=== PATIENT | female | born 1960 | race Caucasian/White ===

== ENCOUNTER → 2018-03-26 21:02 | Outpatient (REF) | payer MEDICARE, SELFPAY ==
[2018-03-26 21:57] LABS: HCT 43.2 % (36.0-46.0); HGB 14.3 g/dL (12.0-15.5); Mean Corp. HGB Concentration 33.1 g/dL (32.0-36.0); Mean Corpuscular Hemoglobin 31.8 pg (27.0-33.0); Mean Corpuscular Volume 96.2 fL (80-95); Platelet Count 210 x1000/uL (130-400); RBC 4.49 m/cumm (4.00-5.20); RBC Distribution Width 12.4 % (11.7-14.6); White Blood Cell Count 5.71 k/cumm (4.4-10.8)
[2018-03-26 22:18] LABS: ALT 103 U/L (12-78); AST 32 U/L (15-37); Albumin 4.1 g/dL (3.4-5.0); Alkaline Phosphatase 129 U/L (46-116); Anion Gap 6.9 mmol/L (3-11); BUN 22 mg/dL (7-18); Bilirubin, Total 0.5 mg/dL (0.2-1.0); CO2 29.1 mmol/L (21.0-32.0); CREATININE 0.98 mg/dL (0.55-1.02); Calcium 9.5 mg/dL (8.5-10.1); Chloride 102 mmol/L (98-107); Estimated GFR 58.29 (mL/min/1.73m2); Glucose 101 mg/dL (70-100); Lipase 126 U/L (73-393); Potassium 4.2 mmol/L (3.5-5.1); Sodium 138 mmol/L (136-145); Total Protein 7.6 g/dL (6.4-8.2)
== END ==
LOC: NCHCN 21:02
PROVIDERS: PCP Internal Medicine; Visit Provider Internal Medicine
DX: R10.12 Left upper quadrant pain (principal); R63.4 Abnormal weight loss
CPT/HCPCS: 80053; 83690; 85027

== ENCOUNTER 2018-04-23 00:42 | Outpatient (CLI) | payer MEDICARE, SELFPAY ==
--- NOTE | 2018-04-23 08:30 | DI.CT_ITS ---
SYMPTOMS/DIAGNOSIS: LUQ ABD PAIN, R10.12, UNEXPLAINED WT LOSS, R63.[address]: The study was carried out with an intravenous administration of 100 cc's of Omnipaque 350 and oral ingestion of dilute Omnipaque. The lung bases are unremarkable. The liver, gallbladder, pancreas and spleen are unremarkable. The kidneys and adrenals are normal. A large quantity of fecal material is noted in the colon. No localized bowel abnormality is identified and there is no evidence of obstruction. The appendix is normal. The bladder is normal. The patient is status post hysterectomy. There is no evidence of free fluid or free air in the intraperitoneal space. There are atherosclerotic changes involving the aorta without evidence of an aneurysm. There are minimal degenerative changes involving the lumbar spine. SUMMARY: A large quantity of fecal material is noted throughout the colon. The findings consistent with constipation.
[2018-04-23] MEDS: Omnipaque 350 MG/ML 50 ML BTL IJ (10:02)
[2018-04-23] MEDS: Breeza Beverage 473 ML BTL PO (10:03)
[2018-04-23] MEDS: Omnipaque 350 MG/ML 100 ML BTL IJ (10:03)
== END 2018-04-23 01:02 ==
PROVIDERS: PCP Internal Medicine; Visit Provider Internal Medicine
DX: R10.12 Left upper quadrant pain (principal); R63.4 Abnormal weight loss; K59.00 Constipation, unspecified
CPT/HCPCS: 74177; J3490; Q9967

== ENCOUNTER 2018-10-03 01:01 | Outpatient (CLI) | payer MEDICARE, SELFPAY ==
--- NOTE | 2018-10-03 11:45 | DI.MAMMO_ITS ---
SYMPTOMS/DIAGNOSIS: SCREENING, Z12.39 BILATERAL SCREENING MAMMOGRAM: Mammograms were interpreted according to the usual protocol including computer analysis with CAD system, tomosynthesis and C view imaging. Comparison is made with 2009 through 2017. The breasts are composed of heterogeneously dense fibroglandular tissue, breast density category C. No suspicious masses or suspicious microcalcifications are seen. There has been no significant change. IMPRESSION: Category 1, negative mammogram. Yearly screening mammography is recommended. [facility] ASSESSMENT OF FINDINGS: Negative. Category 1. Patient will receive a letter notifying them of these results. Bi-RADS category C. The breasts are heterogeneously dense, which may obscure small masses.
== END 2018-10-03 01:21 ==
PROVIDERS: PCP Internal Medicine; Visit Provider Internal Medicine
DX: Z12.31 Encounter for screening mammogram for malignant neoplasm of breast (principal)
CPT/HCPCS: 77063; 77067

== ENCOUNTER 2019-03-27 16:11 | Outpatient (REF) | payer MEDICARE, SELFPAY ==
[2019-03-27 21:44] LABS: Anion Gap 10.2 mmol/L (3-11); BUN 17 mg/dL (7-18); CO2 27.8 mmol/L (21.0-32.0); CREATININE 0.98 mg/dL (0.55-1.02); Calcium 9.3 mg/dL (8.5-10.1); Chloride 103 mmol/L (98-107); Estimated GFR 58.09 (mL/min/1.73m2); Glucose 115 mg/dL (70-100); Potassium 4.3 mmol/L (3.5-5.1); Sodium 141 mmol/L (136-145)
== END 2019-03-27 16:31 ==
LOC: NCHCN 16:11
PROVIDERS: PCP Internal Medicine; Visit Provider Internal Medicine
DX: E11.9 Type 2 diabetes mellitus without complications (principal); I10 Essential (primary) hypertension; G80.9 Cerebral palsy, unspecified; T75.3XXA Motion sickness, initial encounter
CPT/HCPCS: 80048

== ENCOUNTER 2020-07-09 04:14 | Outpatient (CLI) | payer MEDICARE, SELFPAY ==
--- NOTE | 2020-07-09 | DI.RAD_ITS ---
EXAM: XR SHOULDER LT COMPLETE 2+V CLINICAL HISTORY: LT SHOULDER PAIN,M25.512. TECHNIQUE: 2D digital imaging was performed. COMPARISON: CR RIGHT SHOULDER COMPLETE from 08/22/2012 FINDINGS: BONES: No acute fracture is present. No bony destructive lesion is seen. JOINTS: No dislocation present. Minimal spurring of the AC joint. Minimal degenerative changes of the glenohumeral joint. SOFT TISSUE: Normal. IMPRESSION: Minimal degenerative changes. DATA REPOSITORY: RADIATION DOSE DELIVERED:
== END 2020-07-09 04:34 ==
PROVIDERS: PCP Internal Medicine; Visit Provider Internal Medicine
DX: M19.012 Primary osteoarthritis, left shoulder (principal)
CPT/HCPCS: 73030

== ENCOUNTER → 2020-08-24 10:27 | Outpatient (BNVA) | payer MEDICARE, SELFPAY | PROVIDERS: PCP Internal Medicine; Referring Provider Internal Medicine; Visit Provider Student in an Organized Health Care Education/Training Program | DX: M25.512 Pain in left shoulder (principal); X50.9XXD Other and unspecified overexertion or strenuous movements or postures, subsequent encounter; M75.22 Bicipital tendinitis, left shoulder; M75.52 Bursitis of left shoulder; I10 Essential (primary) hypertension | CPT/HCPCS: 99204 ==

== ENCOUNTER 2020-09-02 01:31 | Outpatient (CLI) | payer MEDICARE, SELFPAY ==
--- NOTE | 2020-09-02 07:45 | DI.MRI_ITS ---
EXAM: MR UPPER JOINT LT WO CLINICAL HISTORY: Failed conservative treatments,SLAP LESION,LT ROTATOR CUFF TEAR,TENDINITIS, TECHNIQUE: Multiplanar multisequence MRI of the shoulder was performed. COMPARISON: CR XR SHOULDER LT COMPLETE 2+V from 07/09/2020 FINDINGS: MARROW:There is no evidence of fracture, or Hill-Sachs deformity. There is a bone lesion in the mid humeral head level which measures 1.3 1.3 by 1.4 cm. Probably an e nchondroma. There is no surrounding bone edema. ROTATOR CUFF MECHANISM: AC JOINT/ACROMIUM: There are mild degenerative changes in the acromioclavicular joint.. No prominent impingement evident at this level. The acromion is slightly downsloping and without a impinging acr omial hook evident. There is no evidence of os acromiale. Supraspinatus: Intact. No evidence of tear nor muscle atrophy. Infraspinatus: Intact. No evidence of tear nor muscle atrophy. Teres Minor: Intact. No evidence of tear nor muscle atrophy. Subscapularis/anterior cuff: Mild increased signal anterior to the lesser tuberosity but no high-grad e tear. Also no atrophy. BICEPS TENDON: Normally position in the intertubercular groove. No evidence of tear. Minimal tenosynovitis. LABRUM: No labral tear identified. No evidence of paralabral cyst. GLENOHUMERAL JOINT: No joint effusion nor obvious loose intra-articular bodies. No chondral defects. No osteophytes. No degenerative subarticular cysts. No evidence of capsular tear. The inferior gle nohumeral ligament is intact. CAPSULE: No capsular tears evident. The inferior glenohumeral ligament is intact. QUADRILATERAL SPACE: No evidence of mass in the region of the axillary nerve and dorsal circumflex hu meral vessels. Visualized triceps muscle at this level appears unremarkable. IMPRESSION: 1. Minimal rotator cuff findings. No evidence of rotator cuff tear nor atrophy of the rotator cuff m echanism muscles. 2. Mild degenerative changes in the AC joint. Minimal degenerative changes in the glenohumeral joint . No osteophytes nor degenerative subarticular cysts. 3. No obvious labral tears nor paralabral cyst. Biceps tendon appears intact. 4. There is a nonexpansile 13 x 14 millimeter bone lesion in the mid humeral head which is probably an enchondroma. Recommend follow-up MRI in 6 months to ensure stability. DATA REPOSITORY:
== END 2020-09-02 01:51 ==
PROVIDERS: PCP Internal Medicine; Visit Provider Student in an Organized Health Care Education/Training Program
DX: M19.012 Primary osteoarthritis, left shoulder (principal); M89.8X2 Other specified disorders of bone, upper arm
CPT/HCPCS: 73221

== ENCOUNTER → 2020-09-07 14:36 | Outpatient (BNVA) | payer MEDICARE, SELFPAY | PROVIDERS: PCP Internal Medicine; Referring Provider Internal Medicine; Visit Provider Student in an Organized Health Care Education/Training Program | DX: M75.52 Bursitis of left shoulder (principal); M75.22 Bicipital tendinitis, left shoulder; M25.612 Stiffness of left shoulder, not elsewhere classified; D16.02 Benign neoplasm of scapula and long bones of left upper limb | CPT/HCPCS: 99214 ==

== ENCOUNTER 2020-12-20 15:24 | Outpatient (REF) | payer MEDICARE, SELFPAY ==
[2020-12-20 21:46] LABS: Anion Gap 10.5 mmol/L (3-11); BUN 17 mg/dL (7-18); CO2 28.5 mmol/L (21.0-32.0); CREATININE 0.9 mg/dL (0.55-1.02); Calcium 9.5 mg/dL (8.5-10.1); Calculated LDL 143 mg/dL (<100); Chloride 103 mmol/L (98-107); Cholesterol 242 mg/dL (<200); Glucose 139 mg/dL (74-106); HDL Cholesterol 62 mg/dL (40-60); Potassium 4.3 mmol/L (3.5-5.1); Sodium 142 mmol/L (136-145); Triglyceride 185 mg/dL (<150)
== END 2020-12-20 15:25 | disposition home or self-care (01) ==
LOC: NCHCN 15:24
PROVIDERS: PCP Internal Medicine; Visit Provider Internal Medicine
DX: I10 Essential (primary) hypertension (principal); E78.89 Other lipoprotein metabolism disorders
CPT/HCPCS: 80048; 80061

== ENCOUNTER 2021-01-04 01:14 | Outpatient (CLI) | payer MEDICARE, SELFPAY ==
--- NOTE | 2021-01-04 | DI.MAMMO_ITS ---
Exam(s) MAMMO SCREENING EXAM: MAMMO SCREENING CLINICAL HISTORY: SCREENING, Z12.39,[facility] H/O BREAST CA TECHNIQUE: Mammograms were interpreted according to the usual protocol including computer analysis w [employer] CAD system, tomosynthesis and C-view imaging. COMPARISON: FINDINGS: The breasts are of moderate density with fairly symmetrical distribution of fibroglandular tissue. N o dominant mass or clumped microcalcification is identified in either breast. Current examination is compared with previous examinations including September 2018 and there is question of interval develo pment of 2 areas of nodularity in the retroareolar portion of right breast in comparison with prior e xaminations, these are both seen on CC view but 1 area of nodularity only identified on MLO view. Ad ditional mammographic views of the right breast are requested, breast ultrasound recommended as well. No other significant change seen. IMPRESSION: Additional mammographic views of the right breast and right breast ultrasound requested as described above to evaluate possible retroareolar/central areas of nodularity new since prior examinations. BI-RADS Category 0 - Assessment Incomplete: Need additional imaging evaluation Breast Density - Category B - Scattered areas of fibroglandular density
== END 2021-01-04 01:34 ==
PROVIDERS: PCP Internal Medicine; Visit Provider Internal Medicine
DX: Z12.31 Encounter for screening mammogram for malignant neoplasm of breast (principal); R92.8 Other abnormal and inconclusive findings on diagnostic imaging of breast; Z80.3 Family history of malignant neoplasm of breast
CPT/HCPCS: 77063; 77067

== ENCOUNTER 2021-01-20 00:49 | Outpatient (CLI) | payer MEDICARE, SELFPAY ==
--- NOTE | 2021-01-20 | DI.US_ITS ---
Exam(s) MG MAMMO SCREEN CALL BACK UNI US BREAST RT COMPLETE EXAM: MG MAMMO SCREEN CALL BACK UNI-RIGHT AND COMPLETE RIGHT BREAST ULTRASOUND CLINICAL HISTORY: F/U MAMMO,? 2 NEW AREAS NODULARITY RT BREAST. TECHNIQUE: Unilateral spot mammographic images were obtained with 3D tomosynthesis and utilizing [employer] aided detection (CAD). . Complete right breast Ultrasound was also performed. COMPARISON: Prior mammograms were reviewed. This additional imaging was performed due to findings described on the recent screening mammogram of 01/04/2021. FINDINGS: Additional mammographic views performed todayactually bring out additional multiple nodules.Therefore proceeded with complete right breast ultrasound Ultrasound performed today reveals multiple findings correspond to the mammographic findings. On ultr asound..... At 12 o'clock position there are 5 separate findings which correspond to the findings on the mammogra m. There is a 5 x 3 millimeter microcyst. There is also 4 x 3 millimeter microcysts. There is also a 3 millimeter microcysts. There is also another 3 millimeter microcysts and there is also a 4 millimet er hemorrhagic microcyst which appears to contain a punctate calcifications therein. At the 7 o'clock position there is a 2 millimeter microcyst and there is a 2nd deeper 5 millimeter mi crocysts also evident at 7 o'clock position. At the 8 o'clock position there is a 5 x 4 millimeter nodule which has the appearance of a probable h emorrhagic microcyst. There is no significant adenopathy in the right axilla. IMPRESSION: Multiple ultrasound findings which correspond to the nodular densities on the recent mammogram. On ultrasound these have the appearance of probable hemorrhagic microcysts. Appropriate follow-up is repeat ULTRASOUND in 6 months. Given the density of her fibroglandular tissu e and numerous findings in the right breast I recommend that the follow-up ultrasound in 6 months be a BILATERAL BREAST ULTRASOUND study.. The patient was informed of these findings and recommendations by myself prior to leaving the depart ent today. BI-RADS Category 3 - 6 month - Probably Benign Finding: Recommend follow-up mammography in 6 months Breast Density - Category C - Heterogeneously dense Breast density Category C or D implies that the patient has dense breast tissue. Dense breast tissue can make it harder to find cancer on a mammogram. Dense breast tissue is also associated with an incr eased risk of breast cancer. This information about the result of the mammogram report was provided to the patient to raise their awareness. Use this report when you speak with the patient about their risks for breast cancer, which includes their family history. At that time, you may recommend additional screening tests (Ultrasoun d or MRI) as these tests may add significant information. A negative radiographic report should not delay biopsy if a dominant or clinically suspicious mass is present. Up to ten percent of cancers are not identified on mammography. A negative report may reinforce clinical impression. Adenosis and dense breasts may obscure an underlying neoplasm. False positive reports average 6 to 10%. Patient will receive a letter notifying them of these results.
== END 2021-01-20 01:09 ==
PROVIDERS: PCP Internal Medicine; Visit Provider Internal Medicine
DX: Z12.31 Encounter for screening mammogram for malignant neoplasm of breast (principal); R92.8 Other abnormal and inconclusive findings on diagnostic imaging of breast
CPT/HCPCS: 76642; 77063; 77067

== ENCOUNTER 2021-07-22 01:45 | Outpatient (CLI) | payer MEDICARE, SELFPAY ==
--- NOTE | 2021-07-22 | DI.US_ITS ---
Exam(s) US BREAST LT COMPLETE US BREAST RT COMPLETE EXAM: US BREAST RT COMPLETE and U/S breast LT complete CLINICAL HISTORY: F/U TO ABNL MAMMO, R92.8, 6 MO F/U TECHNIQUE: Ultrasound right and left breasts performed using standard protocol. COMPARISON: US US BREAST RT COMPLETE from 01/20/2021 FINDINGS: No solid, hypoechoic foci, areas of abnormal shadowing, or areas of skin thickening. Both breasts ángel w multiple cysts. There has been no change in appearance of the cysts in the right breast since 01/20. No suspicious cysts are seen in the left breast. IMPRESSION: 1. Multiple bilateral breast cysts. 2. No definite evidence for malignancy. 3. Patient should resume screening mammography. Findings were discussed with the patient on the date of the examination. BI-RADS Category 2 - Benign Findings DATA REPOSITORY:
== END 2021-07-22 02:05 ==
PROVIDERS: PCP Family Medicine; Visit Provider Family Medicine
DX: R92.8 Other abnormal and inconclusive findings on diagnostic imaging of breast (principal); N60.01 Solitary cyst of right breast; N60.02 Solitary cyst of left breast
CPT/HCPCS: 76642

== ENCOUNTER 2021-12-26 12:26 | Outpatient (REF) | payer MEDICARE, SELFPAY ==
[2021-12-26 16:17] LABS: Anion Gap 8.4 mmol/L (3-11); BUN 17 mg/dL (7-18); CO2 27.6 mmol/L (21.0-32.0); Calculated LDL 147 mg/dL (<100); Chloride 104 mmol/L (98-107); Cholesterol 240 mg/dL (<200); Estimated GFR 56.18 (mL/min/1.73m2); Glucose 189 mg/dL (74-106); HDL Cholesterol 51 mg/dL (40-60); Potassium 4.4 mmol/L (3.5-5.1); Sodium 140 mmol/L (136-145); TSH (W/Ref FT4) 1.76 uIU/mL (0.36-3.74); Triglyceride 211 mg/dL (<150)
== END 2021-12-26 12:27 | disposition home or self-care (01) ==
LOC: NCHCN 12:26
PROVIDERS: PCP Family Medicine; Visit Provider Family Medicine
DX: I10 Essential (primary) hypertension (principal); E78.5 Hyperlipidemia, unspecified
CPT/HCPCS: 80048; 80061; 84443

== ENCOUNTER → 2022-04-06 02:06 | Outpatient (CLI) | payer MEDICARE, SELFPAY ==
--- NOTE | 2022-04-06 09:15 | DI.NM_ITS ---
APPROVED REPORT Exam: Pharmacologic Patient Location: Out-Patient Room/Bed: Stress Nurse: Rosalinda Aden RN Ordering Provider:MIKI NOVAK, Contact Number: [phone] BMI: 26.14 Baseline Rhythm: Sinus Rhythm Comment: T wave inversion in aVL Indications: Angina Medical History Medical History: GERD, Angina, HTN, Diabetes, Cerebral Palsy, HLD Cardiac Medications: Metoprolol, Aspirin Allergies: Diltiazem, Metformin, Lisinopril, Methocarbamol, NSAIDS, Codeine, Macrodantin, Mupirocin, adhesive, valsartan Cardiac Risk Factors: +Family history, HTN, HLD, Diabetes, former smoking Previous Cardiac Procedures: None Pretest Chest Pain Characteristics: None Exercise History: Sedentary Physical Disabilities: Cerebral Palsy- difficulty with ambulation Lung Sounds: LCTA Heart Sounds: s1/s2 Stress Test Details Test: Pharmacologic stress testing performed using 0.4 mg of regadenoson per 5 mL given IV over 10 s econds. Reason for pharmacologic stress test: physical limitation, unable to get clear picture of rhythm wh ile pt attempted ambulating. Nuclear Acquisition: Rest Tc-99m/Stress Tc-99m 1 day Rest Isotope: Tc-99m Sestamibi. Dose: 10 Date: 04/06/2022 Injection Time: 929 Stress Isotope: Tc-99m Sestamibi. Dose: 31 Date: 04/06/2022 Injection Time: 11:40 HR Resting HR Supine: 62 bpm Max Heart Rate (APMHR): 158.304201 bpm Resting HR Standin bpm Target HR (85% APMHR): 134.840322 bpm Max HR Achieved: 98 bpm % of APMHR: 62.03 Recovery HR: 86 bpm BP Resting BP Supine: 138/78 mmHg Resting BP Standin/74 mmHg Max BP: 158/74 mmHg Recovery BP: 132/68 mmHg ECG Resting ECG: Sinus Rhythm Ectopy: None Comment: T wave inversion in aVL Stress ECG: Sinus Rhythm ST Change: No significant ST segment changes noted Arrhythmia: None Comment: T wave inversion in aVL Recovery ECG: Sinus Rhythm Recovery ST Change: No significant ST segment changes noted Recovery Arrhythmia: None Comment: T wave inversion in aVL Clinical Stress Symptoms: shortness of breath, abdominal pain 8/10, lightheaded Rate Pressure Product: [id number] Stress ECG Conclusion 1. The resting electrocardiogram was within normal limits 2. Patient underwent pharmacologic stress with regadenoson 3. Heart rate achieved was 62% of predicted heart rate for age. The electrocardiographic portion of the test was nondiagnostic due to inadequate heart rate 4. See MPI report Stress Test Summary STAGE HR BP SpO2 Symptoms NOTES Supine 62 138/78 Standing 70 158/74 1 min post Lexiscan injection 86 140/70 shortness of breath 3 min post Lexiscan injection 92 130/60 abdominal pain 8/10 6 min post Lexiscan injection 87 132/68 9 min post Lexiscan injection 86 lightheaded upon sitting up from stretcher 12 min post Lexiscan injection 89 Symptomt resolved Patient presented for stress portion of her test. We attempted to pair a Lexiscan injection with the patient walking on the treadmill but after 1-2 minutes of ambulating we were unable to get a clear pi cture of the 12 lead and it was clear patient would be unable to walk safely on the treadmill for any more length of time. The treadmill was stopped and patient was assissted to the stretcher where we a dministered the LExiscan injection once she was settled. Patient reported shortness of breath after L exiscan injection and eventually abdominal pain. Both of which subsided within 11 minutes of injectio n. Patient tolerated test well. MPI Conclusion Myocardial perfusion is normal, without evidence of ischemia or prior infarction EF is 70%, normal wall motion Radiologist Interpretation Radiologist Interpretation by: Pedro Paredes MD Interpretation Date/Time: 04/06/2022 19:41:16
[2022-04-06] MEDS: Regadenoson 0.4 MG/5 ML SYR IVP (11:52)
== END ==
PROVIDERS: PCP Family Medicine; Visit Provider Family Medicine
DX: I20.9 Angina pectoris, unspecified (principal); I10 Essential (primary) hypertension; E11.9 Type 2 diabetes mellitus without complications
CPT/HCPCS: 78452; 93016; 93018; 93017; J2785

== ENCOUNTER → 2022-04-25 13:50 | Outpatient (BNVA) | payer MEDICARE, SELFPAY | PROVIDERS: PCP Family Medicine; Referring Provider Family Medicine; Visit Provider Surgery | DX: K21.9 Gastro-esophageal reflux disease without esophagitis (principal); G80.9 Cerebral palsy, unspecified; M62.838 Other muscle spasm | CPT/HCPCS: 99202; 99214 ==

== ENCOUNTER 2022-04-27 16:55 | Outpatient (REF) | payer MEDICARE, SELFPAY ==
[2022-04-27 16:16] LABS: Calculated LDL 70 mg/dL (<100); Cholesterol 166 mg/dL (<200); HDL Cholesterol 64 mg/dL (40-60); Triglyceride 163 mg/dL (<150)
== END 2022-04-27 16:56 | disposition home or self-care (01) ==
LOC: NCHCN 16:55
PROVIDERS: PCP Family Medicine; Visit Provider Family Medicine
DX: E78.5 Hyperlipidemia, unspecified (principal)
CPT/HCPCS: 80061

== ENCOUNTER 2022-05-10 08:27 | Day surgery (SDC) | payer MEDICARE, SELFPAY ==
--- NOTE | 2022-05-10 06:01 | COLE_ITS ---
Colonoscopy Report Date of procedure: 05/10/22 Pre-op diagnosis general: Uncontrolled GERD Procedure: EGD with biopsies Surgeon: Angelika Walters Anesthesia Type: General:No Airway Complications: None Disposition: same day Indications: Mrs Youssef is an 61-year-old female with cerebral palsy who comes in because of symptoms of GERD.? The Pantoprazole that she was switched to by her primary care physician does not seem to be working.? She feels like the Pepcid worked better.? I have asked her to stop the pantoprazole go back on the Pepcid for now.? We discussed the procedure in detail as well as the risks and benefits.? Risks, benefits and complications have been reviewed. Complications include but are not limited to bleeding, pain, perforation, sore throat, aspiration, and adverse reaction to the medications.? Questions were entertained and answered to their satisfaction and they wished to proceed. No guarantees were given or implied. Procedure Description: After informed consent was obtained the patient was take to the procedure room and placed in a supine position. Monitors were applied and a time out was done. The patients name, date of , procedure type, allergies to medications and metal in their body was reviewed. A bite block was placed and the patient was sedated. Once sedated and comfortable the gastroscope was advanced through the oropharynx which was grossly normal into the esophagus. The proximal and mid- esophagus were []. In the distal esophagus there was [] noted. The scope was advanced into the stomach and through the pylorus into the 3rd portion of the duodenum. The duodenum was noted to be []. Biopsies were done []. The scope was retracted back into the stomach and biopsies were done to rule out H. pylori. There were [] ulcers. The scope was retroflexed. The cardia and fundus were noted to be normal. There [] a hiatal hernia noted. The scope was retracted back into the esophagus and biopsies were done of the GE junction to rule out Wilkinson's. The Z line was regular. The GE junction was at [] cm. The scope was removed and the patient was woken up and taken back to [facility] in stable condition.
--- NOTE | 2022-05-10 06:03 | ENDO_ITS ---
Date of service: 05/10/22 Time of Service: 10:48 Endoscopy Report DATE OF PROCEDURE: 05/10/22 PRE-OP DIAGNOSIS: Uncontrolled GERD POST-OP DIAGNOSIS: other (gastric ulcers) PROCEDURE: EGD with biopsies SURGEON: Angelika Walters ANESTHESIA TYPE: General:No Airway ESTIMATED BLOOD LOSS: 3 PATHOLOGY: other (Bx of antrum, gastric ulcers and GE junction) COMPLICATIONS: None DISPOSITION: same day INDICATIONS: Mrs Youssef is an 61-year-old female with cerebral palsy who comes in because of symptoms of GERD.? The Pantoprazole that she was switched to by her primary care physician does not seem to be working.? She feels like the Pepcid worked better.? I have asked her to stop the pantoprazole go back on the Pepcid for now.? We discussed the procedure in detail as well as the risks and benefits.? Risks, benefits and complications have been reviewed. Complications include but are not limited to bleeding, pain, perforation, sore throat, aspiration, and adverse reaction to the medications.? Questions were entertained and answered to their satisfaction and they wished to proceed. No guarantees were given or implied. FINDINGS: inflammation of the stomach with ulcers Inflammation of the esophagus PROCEDURE DESCRIPTION: After informed consent was obtained the patient was take to the procedure room and placed in a supine position. Monitors were applied and a time out was done. The patients name, date of , procedure type, allergies to medications and metal in their body was reviewed. A bite block was placed and t he patient was sedated. Once sedated and comfortable the gastroscope was advanced through the oropharynx which was grossly normal into the esophagus. The proximal and mid- esophagus were normal. In the distal esophagus there was inflammation noted. The scope was advanced into the stomach and through the pylorus into the 3rd portion of the duodenum. The duodenum was noted to be normal. The scope was retracted back into the stomach and biopsies were done to rule out H. pylori. There were multiple small ulcers which were biopsied. The scope was retroflexed. The cardia and fundus were noted to be normal. There was no hiatal hernia noted. The scope was retracted back into the esophagus and biopsies were done of the GE junction to rule out Wilkinson's. The Z line was regular. The GE junction was at 35 cm. The scope was removed and the patient was woken up and taken back to [facility] in stable condition.
--- NOTE | 2022-05-10 06:04 | PDOC.DSDIS_ITS ---
Discharge Plan Disposition Patient Disposition: HOME Condition: Good Discharge Details Reason For Visit: EGD Attending Provider: Angelika Walters Primary Care Provider: Miller Duke Home Meds and New Rx's Prescriptions: New famotidine 40 mg tablet 40 mg PO BID Qty: 60 3RF sucralfate [Carafate] 1 gram tablet 1 g PO TID Qty: 56 0RF Rx Instructions: before meals Continued cholecalciferol (vitamin D3) 50 mcg (2,000 unit) capsule 100 mcg PO DAILY ascorbic acid (vitamin C) 1,000 mg tablet 1 g PO DAILY cyclobenzaprine 10 mg tablet 10 mg PO BID PRN pyridoxine (vitamin B6) [Vitamin B-6] 50 mg tablet 50 mg PO DAILY fluticasone propionate 50 mcg/actuation spray,suspension 1 spray intranasal DAILY Rx Instructions: administer into each nostril cxelijk-kduz-lvclr-oreg-capryl 1 tab PO DAILY acetaminophen [Tylenol Extra Strength] 500 mg tablet 500 mg PO BID PRN naproxen sodium [Aleve] 220 mg tablet 220 mg PO QAM PRN Magnesium Complex 300 mg magnesium tablet 300 mg PO Q OTHER DAY PRN simvastatin 20 mg tablet 20 mg PO QHS metoprolol succinate 100 mg tablet extended release 24 hr 100 mg PO DAILY Dyer Saline Gel 1 applic topical 8-12XD PRN docusate sodium [Colace] 100 mg capsule 100 mg PO DAILY PRN multivitamin [Daily-James] 1 EACH tablet 1 ea PO DAILY sennosides [Senokot] 8.6 MG tablet 8.6 mg PO DAILY aspirin [Aspir-81] 81 MG tablet,delayed release (DR/EC) 81 mg PO DAILY calcium carbonate 500 MG tablet,chewable 1,000 mg CH PRN PRN cranberry extract 500 MG tablet 2,000 mg PO DAILY spironolactone 50 MG tablet 50 mg PO DAILY Discontinued famotidine [Pepcid AC] 20 mg tablet 1 tab PO BID Discharge Instructions Instructions: Diet for Stomach Ulcers and Gastritis (ED), Gastritis (DC), Esophagitis (DC) Additional Instructions: Findings: Inflammation and ulcer in the stomach and inflammation of the esophagus Follow up: I will call with results 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 Do not drive or operate dangerous equipment b. Do not drink alcohol beverages or use any recreational drugs for the first 24 hours or while taking pain medications. The medications in your body may have a reaction that can be dangerous. c. Do not make any important decisions or sign any important papers 1. Generally there are no restrictions on your activity after a day or so has gone by, but you may feel a bit fatigued for a few days. 2. After you arrive home you may have a light meal and return to a normal diet as you can tolerate it without feeling sick to your stomach. 3. After surgery, you may feel pain or discomfort. This should be only transient, but if it persists please contact your doctor. 4. If there are any questions regarding the findings of your procedure, please feel free to contact your doctor. 6. If you are unable to contact your doctor with a problem, contact the hospital at [phone]. 7. Continue all your regular medications unless directed otherwise. I understand the above instructions and have no questions. Signature of Patient or Responsible Adult Escort Date/Time Name of Responsible Adult Escort Signature of Nurse Date/Time Activity:: Activity as Tolerated Diet:: low acid Discharge Orders Discharge Orders: Discharge Order (Routine); Ordered 05/10/22 Ordered By: Angelika Walters
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
[2022-05-10 08:30] VITALS: BP 135/67; PULSE 75; RESP 18; TEMP 36.4; O2SAT 97
[2022-05-10] MEDS: Lactated Ringers 1,000 ML 80 ML IV (09:18)
[2022-05-10 10:02] VITALS: BMI 27.0
--- NOTE | 2022-05-10 10:40 | STOM_PTH ---
PATIENT: Dacia Youssef LOC: [facility] U#:[id number] AGE/SX: 61/F ROOM: RE05/10/[address]: Angelika Walters MD : 1960 BED: DIS: 05/10/2022 SPEC #: [id number] RECD: 05/10/22 12:55 STATUS: SOUBrandon REQ #: [id number] YAS: 05/10/22 10:[address]: Angelika Walters DEPT: Surgical Specimen RECD BY: Roxi Khan ENTERED: 05/10/22 12:57 SP TYPE: STOMACH OTHR DR: Miller Duke Tissues: 1 - STOMACH BIOPSY 2 - STOMACH BIOPSY 3 - ESOPHAGUS BIOPSY Procedures: GROSS AND MICRO LEVEL 4 Comments: [id number]
[2022-05-10 10:55] VITALS: BP 133/63; PULSE 77; RESP 16; TEMP 36.1; O2SAT 97
--- NOTE | 2022-05-10 12:25 | W.ANESPOSTOP ---
Postoperative Evaluation Date, Time and Location Date Performed: 05/10/22 Time Performed: 12:26 Patient Location: Day [facility] Unit Vital Signs Most Recent Imported Vital Signs: Most Recent Vital Signs Temp Pulse Resp BP Pulse Ox 36.1 C L 77 16 133/63 97 05/10/22 10:55 05/10/22 10:55 05/10/22 10:55 05/10/22 10:55 05/10/22 10:55 Assessment Mental Status: Awake (Alert & Oriented to Patient Baseline) Airway and Respiratory Function: Patent airway with normal (patient baseline) respiratory exam Cardiovascular Function: Hemodynamically Stable Hydration Status: Adequately Hydrated Nausea & Vomiting: No Nausea or Vomiting Pain: Pt. Denies Any Pain Peripheral Nerve Block: Patient did not receive a nerve block
== END 2022-05-10 11:40 | disposition home or self-care (01) ==
PROVIDERS: PCP Family Medicine; Visit Provider Surgery
PROC: 0DJ68ZZ Inspection of Stomach, Via Natural or Artificial Opening Endoscopic (ICD-10-PCS; CPT 43235; principal; 2022-05-10 10:00)
DX: K21.9 Gastro-esophageal reflux disease without esophagitis (principal); K25.9 Gastric ulcer, unspecified as acute or chronic, without hemorrhage or perforation; K31.89 Other diseases of stomach and duodenum
CPT/HCPCS: 43239; 88305

== ENCOUNTER → 2022-07-10 02:56 | Outpatient (CLI) | payer MEDICARE, SELFPAY ==
--- NOTE | 2022-07-10 12:45 | DI.MAMMO_ITS ---
Exam(s) MAMMO SCREENING EXAM: MAMMO SCREENING CLINICAL HISTORY: SCREENING, Z12.39 TECHNIQUE: Mammograms were interpreted according to the usual protocol including computer analysis w [employer] CAD system, tomosynthesis and C-view imaging. COMPARISON: 2013 through 2020 FINDINGS: The breasts are composed of scattered fibroglandular densities, Breast Density category B. No suspicious masses or suspicious microcalcifications are seen. Areas of nodularity right breast a decrease in prominence. No skin thickening or abnormal axillary lymph nodes are seen. There has been no significant change from prior exams. IMPRESSION: BI-RADS Cat 2 - Benign Findings Yearly screening mammography is recommended. Breast Density - Category B, scattered fibroglandular densities. A negative radiographic report should not delay biopsy if a dominant or clinically suspicious mass is present. Up to ten percent of cancers are not identified on mammography. A negative report may reinforce clinical impression. Adenosis and dense breasts may obscure an underlying neoplasm. False positive reports average 6 to 10%. Patient will receive a letter notifying them of these results.
== END ==
PROVIDERS: PCP Family Medicine; Visit Provider Family Medicine
DX: Z12.31 Encounter for screening mammogram for malignant neoplasm of breast (principal)
CPT/HCPCS: 77063; 77067

== ENCOUNTER 2022-12-26 18:23 | Outpatient (REF) | payer MEDICARE, SELFPAY ==
[2022-12-26 15:17] LABS: HCT 41.8 % (36.0-46.0); HGB 14.1 g/dL (11.2-15.7); MCH 31.8 pg (27.0-33.0); MCHC 33.7 % (32.0-36.0); MCV 94 fL (80-95); MPV 10.8 fL (8.0-11.0); Platelet Count 202 10^3/uL (130-400); RBC 4.44 10^6/uL (3.93-5.22); RDW 12.2 % (11.7-14.6); RDW-SD 42.2 fL; WBC 6.53 10^3/uL (4.4-10.8)
[2022-12-26 15:34] LABS: ALT 106 U/L (14-59); AST 47 U/L (15-37); Albumin 4.2 g/dL (3.4-5.0); Alkaline Phosphatase 113 U/L (46-116); Anion Gap 8.4 mmol/L (3-11); BUN 18 mg/dL (7-18); Bilirubin, Total 0.6 mg/dL (0.2-1.0); CO2 28.6 mmol/L (21.0-32.0); Calcium 9.7 mg/dL (8.5-10.1); Chloride 102 mmol/L (98-107); Glucose 139 mg/dL (74-106); Potassium 4.6 mmol/L (3.5-5.1); Sodium 139 mmol/L (136-145); Total Protein 7.6 g/dL (6.4-8.2)
[2022-12-26 15:58] LABS: Hemoglobin A1C 6.7 % (<5.7)
== END 2022-12-26 18:24 | disposition home or self-care (01) ==
LOC: NCHCN 18:23
PROVIDERS: PCP Family Medicine; Visit Provider Family Medicine
DX: E11.9 Type 2 diabetes mellitus without complications (principal); I10 Essential (primary) hypertension
CPT/HCPCS: 80053; 85027; 83036

== ENCOUNTER 2022-12-28 16:51 | Outpatient (REF) | payer MEDICARE, SELFPAY ==
[2023-01-01 10:48] LABS: Hepatitis A Antibody IgM Negative (Negative); Hepatitis B Core Antibody Negative (Negative); Hepatitis B surface Ag Negative (Negative); Hepatitis C Ab w Rflx HCV PCR Negative (Negative)
== END 2022-12-28 16:52 | disposition home or self-care (01) ==
LOC: NCHCN 16:51
PROVIDERS: PCP Family Medicine; Visit Provider Family Medicine
DX: R79.89 Other specified abnormal findings of blood chemistry (principal)
CPT/HCPCS: 86704; 86709; 86803; 87340

== ENCOUNTER → 2023-07-18 03:18 | Outpatient (CLI) | payer MEDICARE, SELFPAY ==
--- NOTE | 2023-07-18 | DI.MAMMO_ITS ---
Exam(s) MAMMO SCREENING EXAM: MAMMO SCREENING CLINICAL HISTORY: SCREENING MAMMO Z12.31 TECHNIQUE: Mammograms were interpreted according to the usual protocol including computer analysis w [email or web address] CAD system, tomosynthesis and C-view imaging. COMPARISON: 2013 through 2021 FINDINGS: The breasts are composed of scattered fibroglandular densities, Breast Density category B. No suspicious masses or suspicious microcalcifications are seen. Multiple small bilateral nodules ag ain noted. No skin thickening or abnormal axillary lymph nodes are seen. There has been no significant change from prior exams. IMPRESSION: BI-RADS Category 2 - Negative Mammogram with benign findings. Yearly screening mammography is recomm ended. Breast Density - Category B, scattered fibroglandular densities. A negative radiographic report should not delay biopsy if a dominant or clinically suspicious mass is present. Up to ten percent of cancers are not identified on mammography. A negative report may reinforce clinical impression. Adenosis and dense breasts may obscure an underlying neoplasm. False positive reports average 6 to 10%. Patient will receive a letter notifying them of these results.
== END ==
PROVIDERS: PCP Family Medicine; Visit Provider Family Medicine
DX: Z12.31 Encounter for screening mammogram for malignant neoplasm of breast (principal)
CPT/HCPCS: 77063; 77067

== ENCOUNTER 2024-02-06 15:28 | Outpatient (REF) | payer MEDICARE, SELFPAY ==
[2024-02-06 22:29] LABS: ALT 72 U/L (14-59); AST 29 U/L (15-37); Albumin 4.1 g/dL (3.4-5.0); Alkaline Phosphatase 99 U/L (46-116); Anion Gap 8.4 mmol/L (3-11); BUN 15 mg/dL (7-18); Bilirubin, Total 0.54 mg/dL (0.2-1.0); CO2 28.6 mmol/L (21.0-32.0); Calcium 9.5 mg/dL (8.5-10.1); Chloride 102 mmol/L (98-107); Estimated GFR 62.91 (mL/min/1.73m2); Glucose 186 mg/dL (74-106); Potassium 4.4 mmol/L (3.5-5.1); Sodium 139 mmol/L (136-145); Total Protein 7.2 g/dL (6.4-8.2)
[2024-02-06 22:34] LABS: Abs Immature Grans 0.01 10^3/uL (0.0-0.06); Absolute Basophil Count 0.05 10^3/uL (0.0-0.2); Absolute Eosinophil Count 0.09 10^3/uL (0.0-0.7); Absolute Monocyte Count 0.45 10^3/uL (0.1-0.8); Absolute Neutrophil Count 3.61 10^3/uL (1.2-6.7); Basophils % 0.8 %; Eosinophils % 1.4 %; HCT 41.5 % (36.0-46.0); HGB 14.2 g/dL (11.2-15.7); Immature Grans % 0.2 %; Lymphocytes % 34.3 %; MCH 32.2 pg (27.0-33.0); MCHC 34.2 % (32.0-36.0); MCV 94 fL (80-95); MPV 10.7 fL (8.0-11.0); Neutrophils % 56.3 %; Platelet Count 202 10^3/uL (130-400); RBC 4.41 10^6/uL (3.93-5.22); RDW-SD 41.5 fL; WBC 6.41 10^3/uL (4.4-10.8)
[2024-02-06 22:36] LABS: COMMENT (LAB VIEW ONLY) 64.49 mg/dL; Microalb ug/mg Crea 2.8 ug/mg Cr
== END 2024-02-06 15:29 | disposition home or self-care (01) ==
LOC: NCHCN 15:28
PROVIDERS: PCP Family Medicine; Visit Provider Family Medicine
DX: I10 Essential (primary) hypertension (principal); E11.9 Type 2 diabetes mellitus without complications
CPT/HCPCS: 80053; 82043; 82570; 85025

== ENCOUNTER 2024-05-12 15:24 | Outpatient (REF) | payer MEDICARE, SELFPAY | END 2024-05-12 15:25 | disposition home or self-care (01) | LOC: NCHCN 15:24 | PROVIDERS: PCP Family Medicine; Visit Provider Family Medicine | DX: R30.0 Dysuria (principal); R82.89 Other abnormal findings on cytological and histological examination of urine | CPT/HCPCS: 87086 ==

== ENCOUNTER 2024-10-20 01:16 | Outpatient (CLI) | payer MEDICARE, SELFPAY ==
--- NOTE | 2024-10-20 | DI.RAD_ITS ---
Exam(s) XR HIP RT COMPLETE AP PELVIS EXAM: XR HIP RT COMPLETE AP PELVIS CLINICAL HISTORY: M25.551 Pain in RT hip. TECHNIQUE: 2D digital imaging was performed. Two views COMPARISON: No exams were available for comparison FINDINGS: BONES: No acute fracture is present. No bony destructive lesion is seen. Small enthesophytes at the iliac wings and greater trochanters JOINTS: No dislocation present. Hip joint spaces maintained. Spurring. The SI joints are unremark able. SOFT TISSUE: Normal. IMPRESSION: Mild degenerative changes. DATA REPOSITORY: RADIATION DOSE DELIVERED:
== END 2024-10-20 01:36 ==
LOC: DI 01:16
PROVIDERS: PCP Family Medicine; Visit Provider Family Medicine
DX: M25.551 Pain in right hip (principal)
CPT/HCPCS: 73502

== ENCOUNTER 2024-11-20 00:33 | Outpatient (CLI) | payer MEDICARE, SELFPAY ==
--- NOTE | 2024-11-20 | DI.DEXA_ITS ---
Exam(s) XR DEXA BONE DENSITY W/WO NIRU EXAM: XR DEXA BONE DENSITY W/WO NIRU CLINICAL HISTORY: Asymptomatic menopausal state, Z78.0 TECHNIQUE: Routine DEXA evaluation of the lumbar spine, hip, or forearm. COMPARISON: No exams were available for comparison FINDINGS: Performed on a Hologic unit. Lateral image: No compression fracture evident. Lumbar Spine total T-score: -0.9 Hip total T-score:-1.1 Independent reading at the level of the femoral neck yields T-score of -1.8 Forearm total T-score: 1.4 IMPRESSION: Bone mineral density measures in the osteopenia range. Fracture risk is moderate. Note: Any spine fracture indicates 5x risk for subsequent spine fracture and 2x risk for subsequent h ip fracture. World Health Organization criteria for BMD interpretation classify patients: Normal...... T- Score at or above -1.0 Osteopenic... T- Score between -1.0 and -2.5 Osteoporosis... T-Score at or below -2.5
== END 2024-11-20 00:53 ==
LOC: DI 00:33
PROVIDERS: PCP Family Medicine; Visit Provider Family Medicine
DX: Z78.0 Asymptomatic menopausal state (principal); M85.89 Other specified disorders of bone density and structure, multiple sites
CPT/HCPCS: 77080

== ENCOUNTER 2025-01-15 10:53 | Outpatient (REF) | payer MEDICARE, SELFPAY ==
[2025-01-15 16:33] LABS: COMMENT (LAB VIEW ONLY) 128.67 mg/dL; Microalb ug/mg Crea 22.5 ug/mg Cr
== END 2025-01-15 10:54 | disposition home or self-care (01) ==
LOC: NCHCN 10:53
PROVIDERS: PCP Family Medicine; Visit Provider Family Medicine
DX: E11.9 Type 2 diabetes mellitus without complications (principal)
CPT/HCPCS: 82043; 82570

== ENCOUNTER 2025-05-14 15:12 | Outpatient (REF) | payer MEDICARE, SELFPAY ==
[2025-05-14 20:39] LABS: HCT 40.4 % (36.0-46.0); HGB 13.5 g/dL (11.2-15.7); MCH 31.3 pg (27.0-33.0); MCHC 33.4 % (32.0-36.0); MCV 94 fL (80-95); MPV 10.6 fL (8.0-11.0); Platelet Count 223 10^3/uL (130-400); RBC 4.32 10^6/uL (3.93-5.22); RDW 12.0 % (11.7-14.6); RDW-SD 41.9 fL; WBC 8.35 10^3/uL (4.4-10.8)
[2025-05-14 20:49] LABS: ALT 44 U/L (14-59); AST 17 U/L (15-37); Albumin 3.8 g/dL (3.4-5.0); Alkaline Phosphatase 114 U/L (46-116); Anion Gap 8.6 mmol/L (3-11); BUN 19 mg/dL (7-18); Bilirubin, Total 0.4 mg/dL (0.2-1.0); CO2 29.4 mmol/L (21.0-32.0); Calcium 9.3 mg/dL (8.5-10.1); Chloride 100 mmol/L (98-107); Estimated GFR 50.23 (mL/min/1.73m2); Glucose 276 mg/dL (74-106); Potassium 4.3 mmol/L (3.5-5.1); Sodium 138 mmol/L (136-145); Total Protein 7.2 g/dL (6.4-8.2)
== END 2025-05-14 15:13 | disposition home or self-care (01) ==
LOC: NCHCN 15:12
PROVIDERS: PCP Family Medicine; Visit Provider Family Medicine
DX: E11.9 Type 2 diabetes mellitus without complications (principal)
CPT/HCPCS: 80053; 85027